=== PATIENT | male | born 1960 | race Caucasian/White ===

== ENCOUNTER 2023-06-23 19:19 | Inpatient (IN) | payer OTHER ==
[~2023-06-23] VITALS: Ht 175.3 cm; Wt 66.7 kg
[2023-06-23 19:52] VITALS: O2SAT 93
[2023-06-23] MEDS: ALBUTEROL FS 2.5 MG/3 ML VIAL.NEB NEB ONE (19:53)
[2023-06-23] MEDS: IPRATROPIUM NEB FS 0.5 MG/2.5 ML AMPUL.NEB NEB ONE (19:53)
[2023-06-23] MEDS ORDERED: IPRATROPIUM NEB FS 0.5 MG/2.5 ML AMPUL.NEB ONE (19:56)
[2023-06-23] MEDS ORDERED: ALBUTEROL FS 2.5 MG/3 ML VIAL.NEB ONE (19:56)
[2023-06-23 20:02] VITALS: O2SAT 98
[2023-06-23 20:07] VITALS: O2SAT 96
[2023-06-23 20:13] LABS: BASOPHILS # (AUTO) 0.1 K/uL (0.0-0.2); BASOPHILS % (AUTO) 0.8 % (0.0-2.0); EOSINOPHILS # (AUTO) 0.1 K/uL (0.0-0.7); EOSINOPHILS % (AUTO) 1.3 % (0.0-6.0); HEMATOCRIT 43 % (39-51); HEMOGLOBIN 14.8 g/dL (13.5-17.5); LYMPHOCYTES # (AUTO) 2.7 K/uL (0.8-4.8); LYMPHOCYTES % (AUTO) 24.1 % (20.0-44.0); MEAN CORPUSCULAR HEMOGLOBIN 35 PG (26.0-33.0); MEAN CORPUSCULAR HGB CONC 34 g/dl (31.0-36.0); MEAN CORPUSCULAR VOLUME 102 fL (80-96); MONOCYTES # (AUTO) 0.6 K/uL (0.1-1.30); MONOCYTES % (AUTO) 5.6 % (2.0-12.0); NEUTROPHILS # (AUTO) 7.5 K/uL (1.8-8.9); NEUTROPHILS % (AUTO) 68.2 % (43.0-81.0); PLATELET COUNT (AUTO) 193 K/uL (150-450); RED BLOOD CELL COUNT(AUTO) 4.22 MIL/uL (4.5-6.0); RED CELL DISTRIBUTION WIDTH 14.6 % (11.5-15.0); WHITE BLOOD COUNT (AUTO) 11.1 K/uL (4.3-11.0)
[2023-06-23] MEDS ORDERED: methylPREDNISolone SOD SUCC 125 MG/2ML VIAL ONE (20:16)
[2023-06-23 20:17] VITALS: O2SAT 99
[2023-06-23 20:22] LABS: CARBON DIOXIDE 22 mmol/L (21-32); CHLORIDE 97 mmol/L (98-107); CREATININE 1.4 mg/dL (0.6-1.3); GLUCOSE 90 mg/dL (74-106); POTASSIUM 4.7 mmol/L (3.5-5.1); SODIUM SERUM 134 mmol/L (136-145); UREA NITROGEN, BLOOD 20 mg/dL (7-18)
[2023-06-23 20:27] LABS: ALANINE AMINOTRANSFERASE 33 U/L (12-78); ALBUMIN 3.7 g/dL (3.4-5.0); ALKALINE PHOSPHATASE 57 U/L (46-116); ASPARTATE AMINOTRANSFERASE 36 U/L (15-37); BILIRUBIN,DIRECT 0.2 mg/dL (0.0-0.2); BILIRUBIN,TOTAL 0.4 mg/dL (0.2-1.0); TOTAL PROTEIN, SERUM 8.3 g/dL (6.4-8.2)
[2023-06-23] MEDS: methylPREDNISolone SOD SUCC 125 MG/2ML VIAL IV ONE (20:29)
[2023-06-23 21:01] LABS: ANISOCYTOSIS 1+; LYMPHOCYTES % (MANUAL) 20 % (16-48); MONOCYTES % (MANUAL) 3 % (0-11.0); NEUTROPHILS % (MANUAL) 77 (42-76); PLATELET ESTIMATE ADEQUATE
[2023-06-23 21:02] LABS: OVALOCYTES RARE
[2023-06-23] MEDS ORDERED: LEVOFLOXACIN 750 MG /D5W 150ML 150 ML IV ONE (21:17)
[2023-06-23] MEDS: LEVOFLOXACIN 750 MG /D5W 150ML 150 ML IV ONE (21:26)
[2023-06-23] MEDS ORDERED: Z GUARD REMEDY 4 OZ OINT TP PRN (21:30)
[2023-06-23] MEDS ORDERED: LORAZEPAM INJ 2 MG/ML VIAL IV PRN (21:30)
[2023-06-23] MEDS ORDERED: MAGNESIUM HYDROXIDE 30 ML UDC PO PRN (21:30)
[2023-06-23] MEDS ORDERED: IPRATROPIUM NEB FS 0.5 MG/2.5 ML AMPUL.NEB NEB PRN (21:30)
[2023-06-23] MEDS ORDERED: ONDANSETRON HCL/PF 4 MG/2 ML VIAL IVP PRN (21:30)
[2023-06-23] MEDS ORDERED: MAG HYDROX/AL HYDROX/SIMETH 30 ML UDC PO PRN (21:30)
[2023-06-23] MEDS: Thiamine 100 MG in IV D5W 50 ML IV SCH (21:30)
[2023-06-23] MEDS ORDERED: ACETAMINOPHEN 325 MG TABLET PO PRN (21:30)
[2023-06-23] MEDS ORDERED: ALBUTEROL FS 2.5 MG/3 ML VIAL.NEB NEB PRN (21:30)
[2023-06-23 22:40] LABS: LACTIC ACID 2.2 mmol/L (0.4-2.0)
[2023-06-23] MEDS ORDERED: Thiamine 100 MG/ML VIAL ONE (23:20)
[2023-06-24 04:00] VITALS: BP 104/70; TEMP 97.9
[2023-06-24] MEDS ORDERED: methylPREDNISolone SOD SUCC 40 MG/ML VIAL IV SCH (05:00)
[2023-06-24 07:00] LABS: BASOPHILS % (AUTO) 0.2 % (0.0-2.0); HEMATOCRIT 40 % (39-51); HEMOGLOBIN 14.1 g/dL (13.5-17.5); LYMPHOCYTES # (AUTO) 1.2 K/uL (0.8-4.8); LYMPHOCYTES % (AUTO) 13.3 % (20.0-44.0); MEAN CORPUSCULAR HEMOGLOBIN 35 PG (26.0-33.0); MEAN CORPUSCULAR HGB CONC 35 g/dl (31.0-36.0); MEAN CORPUSCULAR VOLUME 101 fL (80-96); MONOCYTES # (AUTO) 0.1 K/uL (0.1-1.30); MONOCYTES % (AUTO) 1.1 % (2.0-12.0); NEUTROPHILS # (AUTO) 7.9 K/uL (1.8-8.9); NEUTROPHILS % (AUTO) 85.4 % (43.0-81.0); PLATELET COUNT (AUTO) 190 K/uL (150-450); RED BLOOD CELL COUNT(AUTO) 3.99 MIL/uL (4.5-6.0); RED CELL DISTRIBUTION WIDTH 14.3 % (11.5-15.0); WHITE BLOOD COUNT (AUTO) 9.3 K/uL (4.3-11.0)
[2023-06-24 07:52] LABS: ALBUMIN 3.1 g/dL (3.4-5.0); BILIRUBIN,TOTAL 0.5 mg/dL (0.2-1.0); CALCIUM, SERUM 9.5 mg/dL (8.5-10.1); CREATININE 1.2 mg/dL (0.6-1.3); MAGNESIUM 2.2 mg/dL (1.8-2.4); PHOSPHORUS 3.6 mg/dL (2.5-4.9); POTASSIUM 4.6 mmol/L (3.5-5.1); TOTAL PROTEIN, SERUM 7.8 g/dL (6.4-8.2)
[2023-06-24] MEDS: PANTOPRAZOLE 40 MG TABLET.DR PO SCH (09:02)
[2023-06-24] MEDS: THIAMINE HCL 100 MG TABLET PO SCH (09:03)
[2023-06-24] MEDS: CHLORDIAZEPOXIDE HCL 25 MG CAPSULE PO SCH (09:03)
[2023-06-24] MEDS: methylPREDNISolone SOD SUCC 40 MG/ML VIAL IV SCH (09:03)
[2023-06-24] MEDS ORDERED: ALBUTEROL FS 2.5 MG/3 ML VIAL.NEB NEB SCH (09:30)
[2023-06-24] MEDS ORDERED: IPRATROPIUM NEB FS 0.5 MG/2.5 ML AMPUL.NEB NEB SCH (09:30)
[2023-06-24] MEDS ORDERED: SERT50TA12 PO (09:52)
[2023-06-24] MEDS ORDERED: EMPA10TA PO (09:52)
[2023-06-24] MEDS ORDERED: TAMS-12 PO (09:52)
[2023-06-24] MEDS ORDERED: LOSA50TA39 PO (09:52)
[2023-06-24] MEDS ORDERED: FLUT1DIS3 INH (09:52)
[2023-06-24] MEDS ORDERED: THIA100T70 PO (09:52)
[2023-06-24] MEDS ORDERED: NICO-726 PO (09:52)
[2023-06-24] MEDS ORDERED: RIVA10TA PO (09:52)
[2023-06-24] MEDS ORDERED: SPIR25TA6 PO (09:52)
[2023-06-24] MEDS ORDERED: CIME200T12 PO (09:52)
[2023-06-24] MEDS ORDERED: METO200T49 PO (09:52)
[2023-06-24] MEDS ORDERED: ALBU18HF2 IH (09:52)
[2023-06-24] MEDS ORDERED: ARIP20TA4 PO (09:52)
[2023-06-24] MEDS ORDERED: ATOR10TA PO (09:52)
[2023-06-24] MEDS ORDERED: TIOT4MIS2 INH (09:52)
[2023-06-24] MEDS ORDERED: FURO40TA5 PO (09:52)
[2023-06-24 12:18] VITALS: BP 112/95; TEMP 97.5
[2023-06-24 20:02] VITALS: O2SAT 93
[2023-06-24 20:17] VITALS: O2SAT 98
[2023-06-24] MEDS: IPRATROPIUM NEB FS 0.5 MG/2.5 ML AMPUL.NEB NEB SCH (20:30)
[2023-06-24] MEDS: ALBUTEROL FS 2.5 MG/3 ML VIAL.NEB NEB SCH (20:30)
[2023-06-24 21:42] VITALS: BP 107/81; TEMP 97.1; O2SAT 95
[2023-06-25] VITALS (9 sets, daily range): BP systolic 113–141; BP diastolic 75–97; TEMP 97–98; O2SAT 94–100
[2023-06-25] MEDS: IV NS 0.9% 1,000 ML IV PRN (02:02)
[2023-06-25 07:30] LABS: BASOPHILS % (AUTO) 0.1 % (0.0-2.0); HEMATOCRIT 39 % (39-51); HEMOGLOBIN 13.2 g/dL (13.5-17.5); LYMPHOCYTES # (AUTO) 1.2 K/uL (0.8-4.8); LYMPHOCYTES % (AUTO) 6.9 % (20.0-44.0); MEAN CORPUSCULAR HEMOGLOBIN 35 PG (26.0-33.0); MEAN CORPUSCULAR HGB CONC 34 g/dl (31.0-36.0); MEAN CORPUSCULAR VOLUME 103 fL (80-96); MONOCYTES # (AUTO) 0.8 K/uL (0.1-1.30); MONOCYTES % (AUTO) 4.4 % (2.0-12.0); NEUTROPHILS # (AUTO) 15.9 K/uL (1.8-8.9); NEUTROPHILS % (AUTO) 88.6 % (43.0-81.0); PLATELET COUNT (AUTO) 165 K/uL (150-450); RED BLOOD CELL COUNT(AUTO) 3.75 MIL/uL (4.5-6.0); RED CELL DISTRIBUTION WIDTH 14.7 % (11.5-15.0)
[2023-06-25] MEDS: LEVOFLOXACIN 750 MG /D5W 150ML 750 MG in PREMIX 1 EA IV SCH (08:08)
[2023-06-25 08:56] LABS: CALCIUM, SERUM 9.1 mg/dL (8.5-10.1); PHOSPHORUS 3.4 mg/dL (2.5-4.9); POTASSIUM 4.5 mmol/L (3.5-5.1)
[2023-06-25 09:02] LABS: MAGNESIUM 2.4 mg/dL (1.8-2.4)
[2023-06-25] MEDS ORDERED: LEVO500T90 PO (11:46)
[2023-06-25] MEDS ORDERED: METH4TAB3 PO (11:46)
[2023-06-25] MEDS ORDERED: HOME MED (JARDIANCE 10MG) XX SCH (12:00)
[2023-06-25] MEDS ORDERED: THIAMINE HCL 100 MG TABLET PO SCH (12:00)
[2023-06-25] MEDS ORDERED: methylPREDNISolone DOSPAK(4MG) 1 PACK TAB.DS.PK PO SCH (12:00)
[2023-06-25] MEDS ORDERED: NICOTINE POLACRILEX 2 MG LOZENGE BC PRN (12:00)
[2023-06-25] MEDS: SERTRALINE HCL 50 MG TABLET PO SCH (12:18)
[2023-06-25] MEDS: ARIPIPRAZOLE 5 MG TABLET PO SCH (12:18)
[2023-06-25] MEDS: FUROSEMIDE 40 MG TABLET PO SCH (12:18)
[2023-06-25] MEDS: ENSURE ENLIVE 237 ML LIQUID (VANILLA) PO SCH (12:18)
[2023-06-25] MEDS: SPIRONOLACTONE 25 MG TABLET PO SCH (12:18)
[2023-06-25] MEDS ORDERED: ALBUTEROL FS 2.5 MG/3 ML VIAL.NEB NEB PRN (12:30)
[2023-06-25] MEDS: IPRATROPIUM NEB FS 0.5 MG/2.5 ML AMPUL.NEB NEB SCH (13:04)
[2023-06-25] MEDS: FLUTICASONE/VILANTEROL 1 EACH BLST.W.DEV IH SCH (13:19)
[2023-06-26 02:00] VITALS: O2SAT 99
[2023-06-26 06:00] VITALS: BP 138/79; TEMP 97.3; O2SAT 96
[2023-06-26 07:04] LABS: CALCIUM, SERUM 8.8 mg/dL (8.5-10.1); CREATININE 0.9 mg/dL (0.6-1.3); POTASSIUM 3.9 mmol/L (3.5-5.1)
[2023-06-26 07:09] LABS: BASOPHILS % (AUTO) 0.1 % (0.0-2.0); HEMATOCRIT 38 % (39-51); HEMOGLOBIN 13.2 g/dL (13.5-17.5); LYMPHOCYTES # (AUTO) 1.9 K/uL (0.8-4.8); LYMPHOCYTES % (AUTO) 14.4 % (20.0-44.0); MEAN CORPUSCULAR HEMOGLOBIN 36 PG (26.0-33.0); MEAN CORPUSCULAR HGB CONC 34 g/dl (31.0-36.0); MEAN CORPUSCULAR VOLUME 103 fL (80-96); MONOCYTES # (AUTO) 0.9 K/uL (0.1-1.30); MONOCYTES % (AUTO) 6.8 % (2.0-12.0); NEUTROPHILS # (AUTO) 10.3 K/uL (1.8-8.9); NEUTROPHILS % (AUTO) 78.7 % (43.0-81.0); PLATELET COUNT (AUTO) 149 K/uL (150-450); RED CELL DISTRIBUTION WIDTH 14.3 % (11.5-15.0); WHITE BLOOD COUNT (AUTO) 13.1 K/uL (4.3-11.0)
[2023-06-26 08:00] VITALS: BP 117/78; TEMP 98.4; O2SAT 95
[2023-06-26 08:15] VITALS: O2SAT 96
[2023-06-26 08:30] VITALS: O2SAT 99
[2023-06-26] MEDS: methylPREDNISolone SOD SUCC 40 MG/ML VIAL IV SCH (09:11)
[2023-06-26 09:18] VITALS: BP 117/78
[2023-06-26] MEDS: LOSARTAN POTASSIUM 50 MG TABLET PO SCH (09:18)
[2023-06-26] MEDS: FOLIC ACID 1 MG TABLET PO SCH (09:18)
[2023-06-26] MEDS: ATORVASTATIN 10 MG TABLET PO SCH (09:20)
[2023-06-26] MEDS: TAMSULOSIN 0.4 MG CAP.SR.24H PO SCH (09:21)
[2023-06-26] MEDS: RIVAROXABAN 10 MG TABLET PO SCH (09:23)
== END 2023-06-26 16:49 | disposition home or self-care (01) | DRG 139 ==
LOC: ER 19:21 → TELE-TD 21:29 → MEDSG1 21:45
PROVIDERS: ADMIT Nurse Practitioner Acute Care; ATTEND Nurse Practitioner Acute Care
DX: J15.9 Unspecified bacterial pneumonia (principal); N17.0 Acute kidney failure with tubular necrosis; E44.0 Moderate protein-calorie malnutrition; I48.91 Unspecified atrial fibrillation; E87.1 Hypo-osmolality and hyponatremia; J44.0 Chronic obstructive pulmonary disease with (acute) lower respiratory infection; E86.0 Dehydration; J44.1 Chronic obstructive pulmonary disease with (acute) exacerbation; Z88.0 Allergy status to penicillin; R29.6 Repeated falls; M84.48XA Pathological fracture, other site, initial encounter for fracture; D72.829 Elevated white blood cell count, unspecified; F10.10 Alcohol abuse, uncomplicated; F17.210 Nicotine dependence, cigarettes, uncomplicated; I10 Essential (primary) hypertension; N13.9 Obstructive and reflux uropathy, unspecified; D53.9 Nutritional anemia, unspecified; Z79.01 Long term (current) use of anticoagulants; Z79.899 Other long term (current) drug therapy; Z68.1 Body mass index [BMI] 19.9 or less, adult
CPT/HCPCS: 36415; 70220-TC; 71045-TC; 80048-TC; 80053-TC; 80076-TC; 82550-TC; 83605-TC; 83735-TC; 84100-TC; 84484-TC; 85025-TC; 87040-TC; 94760-TC; 94762-TC; 94799-TC; 97112-TC; 97116-TC; 97530-TC; A4216; A4223; G0378; J1956; J2919; J3411; J7030; J7060